=== PATIENT | male | born 1945 | race Caucasian/White ===

== ENCOUNTER 2022-05-21 07:35 | Day surgery (SDC) | payer MEDICARE, OTHER, SELFPAY ==
--- NOTE | 2022-05-21 | COLBX_PTH ---
PATIENT: JULIAN BERNAL LOC: EN U#:[id number] AGE/SX: 76/M ROOM: RE05/21/[address]: Dr. Navdeep Gutiérrez MD : 1945 BED: DIS: 05/21/2022 SPEC #: [id number] RECD: 05/21/22 11:19 STATUS: TERE HAWKINS #: [id number] IRIS: 05/21/22 00:[address]: Navdeep Gutiérrez DEPT: SURGICAL PATHOLOGY RECD BY: Luis England ENTERED: 05/21/22 11:20 SP TYPE: COLON BX OTHR DR: Dr. Halima Milner MD Tissues: A - Sigmoid colon biopsy B - Rectum, NOS Procedures: Surgery Specimen Level IV HEADER OPERATION: Colonoscopy (MAC) PRE-OP DIAGNOSIS: Hemorrhoids, rectal bleeding, chronic anticoagulation TISSUE SUBMITTED: A ? Distal sigmoid polyp biopsy, B ? Rectal polyp MICROSCOPIC DIAGNOSIS A. Distal sigmoid colon polyp, biopsy: Fragments of hyperplastic polyp. B. Rectal polyp, biopsy: Fragments of tubular adenoma. AM:dheeraj 05/22/2022 MICROSCOPIC DESCRIPTION Slides are reviewed. GROSS DESCRIPTION A - Received in fixative is one container labeled with the patient's name and designated distal sigmoid polyp biopsy. The specimen consists of two irregular fragments of light bella soft tissue that in aggregate measure 0.3 x 0.3 x 0.1 cm. The specimen is totally submitted in one cassette. B - Received in fixative is one container labeled with the patient's name and designated rectal polyp. The specimen consists of a bella-pink polyp measuring 0.7 x 0.5 x 0.3 cm. Smaller fragments of bella soft tissue mixed with fecal material are also noted measuring 0.5 x 0.2 x 0.1 cm. The entire specimen is submitted in one cassette. / SJ:dheeraj 05/21/2022 TC:5 CPT: 79169 x2
--- NOTE | 2022-05-21 07:51 | PCM.HP.BLA ---
History and Physical Date of Admission: 05/21/22 Visit Reasons:?Hemorrhoids Chief Complaint: hemorrhoids Is patient in pain?: No Allergies atenolol Allergy (Mild, Verified 03/25/22 14:58) Rash Medications diltiazem HCl 120 mg capsule,extended release 24 hr (Cartia XT) 120 mg PO BID 07/29/17 [History Confirmed 03/25/22] garlic 1,000 mg capsule 1,000 mg PO QPC 07/29/17 [History Confirmed 03/25/22] glucosamine HCl 1,500 mg tablet 1,500 mg PO ONCE 07/29/17 [History Confirmed 03/25/22] omega 9-gxp-heq-fish oil 60 mg-90 mg-500 mg capsule (Fish Oil) cap PO 07/29/17 [History Confirmed 03/25/22] rivaroxaban 20 mg tablet (Xarelto) 20 mg PO QDAY 07/29/17 [History Confirmed 03/25/22] saw palmetto 160 mg capsule 160 mg PO BID 07/29/17 [History Confirmed 03/25/22] PFSH Medical History?(Updated 03/25/22 @ 16:[address] Navdeep Gutiérrez MD) Heart disease Hemorrhoids history of aorta repair history of cardiac ablation History of heart attack Surgical History? History of appendectomy History of hernia repair Social History?(Updated 03/25/22 @ 14:56 by Charu Soto) Smoking Status:? Former smoker alcohol intake:? current alcohol intake frequency: a few times a week Alcohol type: wine HPI HPI HPI: 76-year-old gentleman presents with concerns regarding symptomatic hemorrhoids.? It is of note that among his other medications he is on omega-3 fatty acids and rivaroxaban and saw palmetto.? The patient is complaining of rectal bleeding.? He can feel prolapsing hemorrhoids.? Occasionally will have significant bright red blood in the toilet.? He uses an inversion table and he can literally feel the hemorrhoids reduced back inside of him.? This has been an ongoing problem.? He reminds me that remotely Dr. Oropeza was performing a hernia repair neck the aorta and I assisted with the repair of that.? The patient cannot really recall when he had his last colonoscopy perhaps dating all the way back to 2012.? He has no personal history that he remembers of colon polyps or colon cancer.? He has not had an updated examination regarding his rectal bleeding.? He is on the Xarelto because of atrial fibrillation.? Is also had a cardiac stent placed in 2014.? He currently says he has no symptoms.? He has a cardiac follow-up with nurse practitioner Angelica Purcell on April 04, 2022. 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 He has always remained physically active.? He has not had any unexpected weight loss.? He denies any family history of colon cancer. ROS General General: No weight change, appetite, fatigue, colon cancer, breast cancer or weakness HEENT HEENT: No difficulty swallowing, eye injury, eye surgery, swollen glands or hoarseness Endo Endocrine: No thyroid disease, diabetes mellitus, thyroid cancer, Hair loss, heat intolerance or cold intolerance Skin Skin: No rash or changing moles Musc Musculoskeletal: Yes back problems and arthritis; No rheumatoid arthritis, gout or joint pain Cardio Cardiovascular: Yes heart disease, atrial fibrillation, heart attack and heart stent Psych Psychiatric: No depression, anxiety or hearing voices Resp Respiratory: No shortness of breath, No sleep apnea, No cough, No COPD, No asthma, No emphysema and No wheezing Gastro Gastrointestinal: No abdominal pain, No nausea or vomiting, No diarrhea, No constipation, No blood in stool, No acid reflux, Yes hemorrhoids, No ulcers, No gallbladder problem and No black,tarry stools Sagar Hematologic: Yes blood thinners, No blood disorders, No bleeding, No anemia and No blood clots Neuro Neurologic: No system reviewed and no additional complaints, except as documented, No as per HPI, No abnormal gait, No abnormal hearing, No abnormal movements, No abnormal speech, No behavioral changes, No burning sensations, No confusion, No convulsions, No disequilibrium, No dizziness, No localized weakness, No frequent falls, No headache(s), No lack of coordination, No loss of vision, No memory loss, No numbness, No other visual disturbances, No radicular pain, No restless legs, No sensory deficit, No syncope, No tingling, No tremor(s), No weakness and No other Exam Const General: cooperative, healthy appearing and comfortable [facility] Head: normal to inspection Eyes General: appearance normal, both eyes and all related structures Neck Neck: normal visual inspection Chest Chest palpation & inspection: normal inspection of the chest Resp Effort & Inspection: normal respiratory effort Cardio Palpation: normal PMI Rate: regular rate Rhythm: regular rhythm GI Palpation: soft and no hepatosplenomegaly Auscultation: normal bowel sounds Musc Cervical Spine: normal cervical lordosis Skin General: no rashes or lesions noted Neuro General: patient alert, patient awake and patient oriented x3 Extrem General: no calf tenderness Assessment and Plan Assessment and Plan (1) Hemorrhoids: (2) Rectal bleeding: ?Status:?Acute (3) Chronic anticoagulation: ?Status:?Acute Plan I recommended the patient a colonoscopy with possible biopsy or polypectomy as indicated.? He is aware of the technique, benefit, risk of alternatives.? We will have him hold Xarelto for 2 days proceed with diagnostic colonoscopy.? Very careful inspection for sources of rectal bleeding and hemorrhoids will be pursued. Today I did discuss with him techniques of hemorrhoidal bleeding treatment.? We briefly discussed banding and hemorrhoidal stapling and surgical hemorrhoidectomy.? We discussed the benefits and risks of each procedure.? Based upon his history I am suspecting he likely would be a better candidate for surgical hemorrhoidectomy.? He goes to the gym and lifts at least 3 times per week.? He would be at increased risk for recurrence.? I did discuss with him importance of daily fiber supplementation and increased fluid intake as well. I anticipate after the colonoscopy seeing him in the office in return to discuss options.? The patient has an upcoming cardiology appointment on April 04, 2022.? I instructed him that he needs to be cleared to proceed with the colonoscopy and potential surgical treatment of his hemorrhoids.? I have asked him to forward us that information. I very much appreciate the kind opportunity of assisting with his surgical care.? He has had an opportunity to ask and have questions answered. Copy: Dr. Ab Gutiérrez M.D., F.A.C.S. I have examined the patient and the H&P has been reviewed. There are no clinical changes since date of exam. Navdeep Gutiérrez M.D., F.A.C.S.
[2022-05-21] MEDS: Lactated Ringers 1,000 ML 15 ML IV (08:00)
[2022-05-21 08:12] VITALS: BP 130/73; PULSE 80; RESP 18; TEMP 36.3; O2SAT 100; BMI 24.3
[2022-05-21 09:05] VITALS: BP 130/73; BP 85/45; PULSE 60; RESP 12; TEMP 36.4; O2SAT 92
--- NOTE | 2022-05-21 09:06 | OP.COLON_ITS ---
Patient Name: Daniel Hartman Procedure Date: 05/21/2022 8:35 AM Date of : 1945 Age: 76 Procedure: Colonoscopy Indications: Rectal bleeding Providers: Navdeep Gutiérrez MD Medicines: See the Anesthesia note for documentation of the administered medications Patient Profile: Last Colonoscopy: none. The patient's first colonoscopy is today. Complications: No immediate complications. Procedure: Pre-Anesthesia Assessment: - Prior to the procedure, a History and Physical was performed, and patient medications and allergies were reviewed. The patient's tolerance of previous anesthesia was also reviewed. The risks and benefits of the procedure and the sedation options and risks were discussed with the patient. All questions were answered, and informed consent was obtained. Prior Anticoagulants: The patient has taken Xarelto (rivaroxaban), last dose was day of procedure. ASA Grade Assessment: II - A patient with mild systemic disease. After reviewing the risks and benefits, the patient was deemed in satisfactory condition to undergo the procedure. After I obtained informed consent, the scope was passed under direct vision. Throughout the procedure, the patient's blood pressure, pulse, and oxygen saturations were monitored continuously. The colonoscope was introduced through the anus and advanced to the cecum, identified by appendiceal orifice and ileocecal valve. The colonoscopy was performed without difficulty. The patient tolerated the procedure well. The quality of the bowel preparation was adequate to identify polyps. The ileocecal valve and the appendiceal orifice were photographed. Scope In: 8:42:05 AM Scope Withdrawal Time 0 hours 10 minutes 48 seconds Scope Out: 8:59:27 AM Total Procedure Duration Time 0 hours 17 minutes 22 seconds Findings: The digital rectal exam findings include non-thrombosed internal hemorrhoids and internal hemorrhoids that prolapse with straining, but require manual replacement into the anal canal (Grade III). Pertinent negatives include normal prostate (size, shape, and consistency). A 4 mm polyp was found in the distal sigmoid colon. The polyp was sessile. The polyp was removed with a cold biopsy forceps. Resection and retrieval were complete. A 8 mm polyp was found in the rectum. The polyp was sessile. The polyp was removed with a hot snare. Resection and retrieval were complete. The exam was otherwise without abnormality. Impression: - Non-thrombosed internal hemorrhoids and internal hemorrhoids that prolapse with straining, but require manual replacement into the anal canal (Grade III) found on digital rectal exam. Left lateral prolapsed internal hemorrhoid with congestion and friability and bleeding. - One 4 mm polyp in the distal sigmoid colon, removed with a cold biopsy forceps. Resected and retrieved. - One 8 mm polyp in the rectum, removed with a hot snare. Resected and retrieved. - The examination was otherwise normal. Recommendation: - Discharge patient to home. - Resume previous diet. - Continue present medications. - Repeat colonoscopy in 5 years for surveillance based on pathology results. - Return to my office in 1 week. Recommend left lateral anal surgical hemorrhoidectomy The patient will need to be compliant on that occasion with holding his Xarelto. He forgot to cease taking it for his colonoscopy. Procedure Code(s): --- Professional --- 03758, Colonoscopy, flexible; with removal of tumor(s), polyp(s), or other lesion(s) by snare technique 82326, 59, Colonoscopy, flexible; with biopsy, single or multiple Diagnosis Code(s): --- Professional --- K64.2, Third degree hemorrhoids D12.5, Benign neoplasm of sigmoid colon K62.1, Rectal polyp K62.5, Hemorrhage of anus and rectum CPT copyright 2017 [employer]. All rights reserved. The codes documented in this report are preliminary and upon brand ambassadors promotional sales review may be revised to meet current compliance requirements. Navdeep Gutiérrez MD 05/21/2022 9:06:10 AM This report has been signed electronically. Number of Addenda: 0 Note Initiated On: 05/21/2022 8:35 AM
--- NOTE | 2022-05-21 09:07 | OP.CCLET_ITS ---
05/21/2022 Marcos Moy [address] [place] [address] Re : Colonoscopy procedure for Daniel Hartman Dear Dr. Moy This procedure was performed on Saturday, May 21, 2022. My impressions and recommendations are as follows: Impressions : - Non-thrombosed internal hemorrhoids and internal hemorrhoids that prolapse with straining, but require manual replacement into the anal canal (Grade III) found on digital rectal exam. Left lateral prolapsed internal hemorrhoid with congestion and friability and bleeding. - One 4 mm polyp in the distal sigmoid colon, removed with a cold biopsy forceps. Resected and retrieved. - One 8 mm polyp in the rectum, removed with a hot snare. Resected and retrieved. - The examination was otherwise normal. Recommendations : - Discharge patient to home. - Resume previous diet. - Continue present medications. - Repeat colonoscopy in 5 years for surveillance based on pathology results. - Return to my office in 1 week. Recommend left lateral anal surgical hemorrhoidectomy The patient will need to be compliant on that occasion with holding his Xarelto. He forgot to cease taking it for his colonoscopy. My findings are described in the full procedure note, which is enclosed. If I can be of further assistance, please feel free to contact me at Doctor phone number(s): Work: . Sincerely, Navdeep Gutiérrez MD 05/21/2022 9:06:10 AM This report has been signed electronically.
[2022-05-21 09:10] VITALS: BP 103/54; BP 130/73; PULSE 58; RESP 14; O2SAT 94
[2022-05-21 09:15] VITALS: BP 102/68; BP 130/73; BP 95/71; PULSE 62; PULSE 67; RESP 16; RESP 18; TEMP 36.3; O2SAT 98; O2SAT 99
[2022-05-21 09:52] VITALS: BP 130/73
== END 2022-05-21 09:59 | disposition home or self-care (01) ==
LOC: EN 07:37 → AC 07:39
PROVIDERS: PCP Internal Medicine; Referring Provider Internal Medicine; Visit Provider Surgery
PROC: 0DJD8ZZ Inspection of Lower Intestinal Tract, Via Natural or Artificial Opening Endoscopic (ICD-10-PCS; CPT 45378; principal; 2022-05-21 08:40)
DX: D12.8 Benign neoplasm of rectum (principal); I48.91 Unspecified atrial fibrillation; K63.5 Polyp of colon; K64.2 Third degree hemorrhoids; K62.5 Hemorrhage of anus and rectum; Z79.01 Long term (current) use of anticoagulants; Z79.899 Other long term (current) drug therapy; Z87.891 Personal history of nicotine dependence
CPT/HCPCS: 45385; 45380; 88305; J7120; J2405

== ENCOUNTER 2022-07-18 05:53 | Day surgery (SDC) | payer MEDICARE, OTHER, SELFPAY ==
[2022-07-18] VITALS (8 sets, daily range): BP systolic 129–163; BP diastolic 68–99; PULSE 67–95; RESP 16–18; TEMP 36.2–36.6; O2SAT 97–100; BMI 25.9
[2022-07-18] MEDS: Lactated Ringers 1,000 ML 15 ML IV (06:15)
--- NOTE | 2022-07-18 06:29 | PCM.HP.BLA ---
History and Physical Date of Admission: 07/18/22 Visit Reasons:?Discuss Hemorrhoids found during C-Scope 05/21 Chief Complaint: hemorrhoids Shaker Washer Required: No Is patient in pain?: No Allergies atenolol Allergy (Mild, Verified 05/30/22 07:57) Rash Medications diltiazem HCl 120 mg capsule,extended release 24 hr (Cartia XT) 180 mg PO DAILY 07/29/17 [History Confirmed 05/30/22] rivaroxaban 20 mg tablet (Xarelto) 20 mg PO QDAY 07/29/17 [History Confirmed 05/30/22] saw palmetto 160 mg capsule 160 mg PO BID 07/29/17 [History Confirmed 05/30/22] ascorbic acid 125 mg-collagen, hydrolyzed 740 mg capsule (Collagen Plus Vitamin C) 1 cap PO DAILY 05/20/22 [History Confirmed 05/30/22] coenzyme Q10 100 mg capsule (CoQ-10) 100 mg PO DAILY 05/20/22 [History Confirmed 05/30/22] multivitamin 1 cap PO DAILY 05/20/22 [History Confirmed 05/30/22] red yeast rice 600 mg capsule 600 mg PO DAILY 05/20/22 [History Confirmed 05/30/22] PFSH Medical History? Alcohol use Arthritis Back pain Cardiology follow-up encounter Former smoker Heart disease Hemorrhoids history of aorta repair History of atrial fibrillation history of cardiac ablation History of echocardiogram History of heart attack History of stress test Hypertension Prostate disease Scab Wears glasses Wears hearing aid Surgical History? History of appendectomy History of cardiac catheterization History of coronary artery stent placement History of hernia repair Hx of excision of mass Social History? Smoking Status:? Former smoker alcohol intake:? current alcohol intake frequency: a few times a week Alcohol type: wine HPI HPI HPI: 76-year-old gentleman returns to discuss surgical findings regarding rectal bleeding. His presenting symptoms were as follows 76-year-old gentleman presents with concerns regarding symptomatic hemorrhoids.? It is of note that among his other medications he is on omega-3 fatty acids and rivaroxaban and saw palmetto.? The patient is complaining of rectal bleeding.? He can feel prolapsing hemorrhoids.? Occasionally will have significant bright red blood in the toilet.? He uses an inversion table and he can literally feel the hemorrhoids reduced back inside of him.? This has been an ongoing problem.? He reminds me that remotely Dr. Oropeza was performing a hernia repair neck the aorta and I assisted with the repair of that.? The patient cannot really recall when he had his last colonoscopy perhaps dating all the way back to 2012.? He has no personal history that he remembers of colon polyps or colon cancer.? He has not had an updated examination regarding his rectal bleeding.? He is on the Xarelto because of atrial fibrillation.? Is also had a cardiac stent placed in 2014.? He currently says he has no symptoms.? He has a cardiac follow-up with nurse practitioner Angelica Purcell on April 04, 2022. 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 He has always remained physically active.? He has not had any unexpected weight loss.? He denies any family history of colon cancer. On May 21, 2022 I did a colonoscopy for him.? This demonstrated prolapsing internal hemorrhoids with engorgement.? Partially reducible.? Particularly left lateral aspect there was congestion friability and bleeding.? A 4 mm polyp was taken to the sigmoid colon and an 8 mm polyp from the rectum.? Pathology respectively was a hyperplastic polyp and a tubular adenoma. The patient is on rivaroxaban (Xarelto).? Also on saw palmetto. The patient continues to have some intermittent bleeding.? He has had some intermittent discomfort. ROS General General: No weight change, appetite, fatigue, colon cancer, breast cancer or weakness HEENT HEENT: No difficulty swallowing, eye injury, eye surgery, swollen glands or hoarseness Endo Endocrine: No thyroid disease, diabetes mellitus, thyroid cancer, Hair loss, heat intolerance or cold intolerance Skin Skin: No rash or changing moles Musc Musculoskeletal: Yes back problems and arthritis; No rheumatoid arthritis, gout or joint pain Cardio Cardiovascular: Yes heart disease, atrial fibrillation, heart attack and heart stent Psych Psychiatric: No depression, anxiety or hearing voices Resp Respiratory: No shortness of breath, No sleep apnea, No cough, No COPD, No asthma, No emphysema and No wheezing Gastro Gastrointestinal: No abdominal pain, No nausea or vomiting, No diarrhea, No constipation, No blood in stool, No acid reflux, Yes hemorrhoids, No ulcers, No gallbladder problem and No black,tarry stools Sagar Hematologic: Yes blood thinners, No blood disorders, No bleeding, No anemia and No blood clots Neuro Neurologic: No system reviewed and no additional complaints, except as documented, No as per HPI, No abnormal gait, No abnormal hearing, No abnormal movements, No abnormal speech, No behavioral changes, No burning sensations, No confusion, No convulsions, No disequilibrium, No dizziness, No localized weakness, No frequent falls, No headache(s), No lack of coordination, No loss of vision, No memory loss, No numbness, No other visual disturbances, No radicular pain, No restless legs, No sensory deficit, No syncope, No tingling, No tremor(s), No weakness and No other Exam Const General: cooperative, healthy appearing, comfortable and no acute distress [facility] Head: normal to inspection Eyes General: appearance normal, both eyes and all related structures Chest Chest palpation & inspection: normal inspection of the chest Resp Effort & Inspection: normal respiratory effort Auscultation: clear to auscultation bilaterally Cardio Rate: regular rate Rhythm: regular rhythm GI Palpation: soft and no hepatosplenomegaly Other: Engorged prolapsing partially reducible internal hemorrhoids Skin General: no rashes or lesions noted Neuro General: patient alert, patient awake and patient oriented x3 Extrem General: no calf tenderness Psych Appearance: grossly normal Assessment and Plan Assessment and Plan (1) Bleeding internal hemorrhoids: ?Status:?Acute (2) Chronic anticoagulation: ?Status:?Acute ?Plan: I recommend to the patient is surgical hemorrhoidectomy and in detail I have discussed the technique, benefit, risk of alternatives.? I have an encouraged him to initiate already a daily fiber supplementation.? We have discussed postoperative recovery. He has had an opportunity to ask and have questions answered.? I am expecting rather than extensive disease.? Likely anticipate general anesthesia. We will have him hold his Xarelto 2 days preoperatively. He has had an opportunity to ask and have questions answered.? We will schedule him upon my return. Copy: Dr. Halima Gutiérrez M.D., F.A.C.S. I have examined the patient and the H&P has been reviewed. There are no clinical changes since date of exam. Navdeep Gutiérrez M.D., F.A.C.S. Assessment & Plan Assessment/Plan (1) Bleeding internal hemorrhoids:
--- NOTE | 2022-07-18 06:30 | DCINST_ITS ---
Discharge Instructions Procedure Rectal Surgery Diet Discharge Diet: Light diet - advance as tolerated Activity Discharge Activity: Return to Normal Activity, May Not Drive (while you are taking narcotic pain medications. Do not drive, work with heavy equipment or sign legal documents for 24 hours after your surgery.), May Shower and May Take a Tub Bath Additional Activity Instructions:: Do not drive or work with heavy equipment or sign legal documents for 24 hours. Be aware that pain medications may cause nausea. You should typically eat light foods as you take your pain medications. Avoiding spicy or constipating foods like cheese would be advised. You may apply for Dibucaine ointment as needed for comfort. Assure good hygiene after moving your bowels with wiping pads or bathing or showering. A hygiene pad can be utilized to assist with mucus or bloody drainage I recommend daily fiber supplementation heaping tablespoon of Metamucil, Citrucel, FiberCon, Benefiber or generic with water. Mineral oil 30 cc (1 ounce) daily mixed in juice or food for at least the first week Sitz bath and warm soapy water for approximately 20 minutes a time as needed for comfort If you are not having any bleeding you may resume your xarelto on 07/22/22. Follow Up Care Please Follow Up With: Navdeep Gutiérrez MD When: Please call [phone] for follow-up appointment in 3 weeks Test Results: Test results from this visit will be discussed in further detail at your follow- up appointment, if applicable. Discharge Plan Admission Primary Reason for Your Visit: Bleeding internal hemorrhoids Attending Provider: Navdeep Gutiérrez Primary Care Provider: Halima Milner Discharge Orders/Prescriptions Prescriptions: New metronidazole 250 mg tablet 250 mg PO Q8H Qty: 15 0RF hydrocodone-acetaminophen 5-325 mg tablet 1 tab PO Q6H PRN (Reason: pain) 3 Days Qty: 10 0RF No Action diltiazem HCl [Cartia XT] 120 mg capsule,extended release 24hr 180 mg PO DAILY rivaroxaban [Xarelto] 20 mg tablet 20 mg PO QDAY saw palmetto 160 mg capsule 160 mg PO BID multivitamin Capsule 1 cap PO DAILY coenzyme Q10 [CoQ-10] 100 mg Capsule 100 mg PO DAILY Collagen Plus Vitamin C 125-740 mg Capsule 1 cap PO DAILY red yeast rice 600 mg Capsule 600 mg PO DAILY Rx Instructions: give with meal/snack Referrals / Follow Up: Halima Milner MD [Primary Care Provider] - Disposition Disposition (needs filled in before D/C Order can be placed): Home, Self Care
[2022-07-18] MEDS: Clindamycin 900 MG/50 ML BAG 75 MG IV (07:20)
--- NOTE | 2022-07-18 07:30 | HEM_PTH ---
PATIENT: JULIAN BERNAL [place] [facility] [id number] AGE/SX: 76/M ROOM: RE07/18/[address]: Dr. Navdeep Gutiérrez MD : 1945 BED: DIS: 07/18/2022 SPEC #: [id number] RECD: 07/18/22 08:59 STATUS: TERE RESasha #: [id number] IRIS: 07/18/22 07:[address]: Navdeep Gutiérrez DEPT: SURGICAL PATHOLOGY RECD BY: Neeru Bolden ENTERED: 07/18/22 10:17 SP TYPE: HEMORRHOID OTHR DR: Dr. Halima Milner MD Tissues: HEMORRHOIDS Procedures: Surgery Specimen Level III HEADER OPERATION: Hemorrhoidectomy PRE-OP DIAGNOSIS: Hemorrhoids TISSUE SUBMITTED: Hemorrhoids MICROSCOPIC DIAGNOSIS Hemorrhoids, hemorrhoidectomy: Pieces of anorectal mucosa with dilated and congested blood vessel, consistent with hemorrhoids. SJ:dheeraj 07/19/2022 MICROSCOPIC DESCRIPTION Slides are reviewed. GROSS DESCRIPTION Received in fixative is one container labeled with the patient's name and designated hemorrhoid. The specimen consists of a piece of bella mucosal tissue measuring 3.5 x 3.0 x 2.0 cm. Also present in the container is a small piece of mucosal tissue measuring 1.0 x 0.5 x 0.3 cm. The larger piece is serially sectioned and reveals congested and hemorrhagic cut surfaces. The smaller piece is bisected. Ship'[employer] Cook sections are submitted in two cassettes. / QIAN:dheeraj 07/18/2022 TC:5 CPT: 87373
[2022-07-18] MEDS: Dibucaine 30 GM Tube 1 APPLIC (07:53)
[2022-07-18] MEDS: BUPIVACAINE LIPOSOME/PF 20 ML VIAL OPERA.SITE (07:53)
[2022-07-18] MEDS: Bupivacaine 0.25% 30 ML Vial (07:53)
--- NOTE | 2022-07-18 08:08 | OP.PCM_ITS ---
Report of Operation Date of Procedure: 07/18/22 Pre-Operative Diagnosis: Bleeding prolapsing internal hemorrhoids Post-Operative Diagnosis: Same Surgery/Procedure Performed:: Multiple column surgical internal hemorrhoidectomy Description of Surgical Findings:: Timeout informed consent was obtained. 76-year-old gentleman was taken to the operating room underwent general endotracheal ovation esthesia clindamycin 9 mg were given intravenously he was then placed prone jackknife on the table with careful shoulder and pelvic padding. Buttock was carefully taped apart. Clipper prepped and performed Betadine prepping performed. Patient had a very large prolapsing internal component on the left mid to lateral side used an Allis to help retract this placed an apical suture of 0 chromic and secured that then placed an additional apical suture of 2-0 chromic. Used a harmonic scalpel to exclude completely excised the hemorrhoidal tissue. Hemostasis was nicely intact. I approximated the mucosa with a running simple and locking 2-0 ch romic. Excellent arches excision was achieved. Inspected and saw there was a smaller component of internal hemorrhoidal disease right mid lateral. I excised that with the harmonic scalpel and then approximated the mucosa with a running 2-0 chromic. There was no significant residual external disease and the vast bulk of the internal disease had been resected. I used Exparel 20 cc mixed with 25 cc of 0.25% Marcaine as a local anesthetic and thoroughly placed local cervical completely around the circumference of the anal rectal area. Dibucaine treated Vaseline gauze was inserted followed by dry cover dressing. Sponge and instrument and needle counts were reported the surgeon to be correct. Specimens hemorrhoids. Drains Vaseline gauze. Blood loss minimal. The patient was taken the recovery area in satisfactory addition without apparent complication Navdeep Gutiérrez M.D., F.A.C.S.
--- NOTE | 2022-07-18 12:01 | SUR.PHASEII ---
Flomax 0.4mg, nightly, dispense 30 called to David Almanzar
[2022-07-18] MEDS: Tamsulosin HCl 0.4 MG Capsule PO (12:10)
== END 2022-07-18 12:38 | disposition home or self-care (01) ==
LOC: SDC 05:54 → AC 05:55
PROVIDERS: PCP Internal Medicine; Referring Provider Surgery; Visit Provider Surgery
PROC: (CPT 46260; principal; 2022-07-18 07:15)
DX: K64.8 Other hemorrhoids (principal); I48.91 Unspecified atrial fibrillation; I10 Essential (primary) hypertension; Z79.01 Long term (current) use of anticoagulants; Z79.899 Other long term (current) drug therapy; I25.2 Old myocardial infarction; Z87.891 Personal history of nicotine dependence; Z95.5 Presence of coronary angioplasty implant and graft
CPT/HCPCS: 46260; 00902; 88304; J7120; J2405